=== PATIENT | female | born 1985 | race Caucasian/White ===

== ENCOUNTER 2018-09-24 13:23 | Emergency (ER) | payer OTHER ==
[2018-09-24] MEDS ORDERED: NS 1,000 ML IV ONE (13:51)
[2018-09-24] MEDS ORDERED: LORazepam 2 MG/ML INJ IVP ONE (13:51)
--- NOTE | 2018-09-24 13:57 | EDPHY ---
H & P Stated Complaint: difficulty speaking and vision changes Time Seen by Provider: 09/24/18 13:41 HPI/ROS: CHIEF COMPLAINT: Vision changes, hand and face tingling HISTORY OF PRESENT ILLNESS: Patient is a 33-year-old female who has reported history of migraines as well as anxiety attacks. She reports that about 2 hr ago she was at a meeting at work where they are having a lot of stress and she suddenly developed some colitis scope vision in both eyes. No headache. No trauma. No recent fevers or infections. She then felt flustered and he felt like she could not get her words out. She was eventually able to tell her coworkers that she "needed a moment". She did not have slurred speech at the time. She then noticed some tingling in her right lips and right hand. She went and was able to text her . She had normal dexterity. Her texts made since. She was then able to speak with her on the phone. Over the next half an hour symptoms gradually resolved. She did not have any head pain. No focal weakness. She Googled the symptoms and was worried that maybe she had a stroke. Her migraines in the past have not manifest in this way enough been more classic for in the lateral pain. Severity: Moderate Modifying factors: Now resolved REVIEW OF SYSTEMS: Constitutional: denies: chills, fever, recent illness, recent injury EENTM: denies: See HPI, blurred vision, double vision, nose congestion Respiratory: denies: cough, shortness of breath Cardiac: denies: chest pain, irregular heart rate, lightheadedness, palpitations Gastrointestinal/Abdominal: denies: abdominal pain, diarrhea, nausea, vomiting, blood streaked stools Genitourinary: denies: dysuria, frequency, hematuria, pain Musculoskeletal: denies: joint pain, muscle pain Skin: denies: lesions, rash, jaundice, bruising Neurological: See HPI denies: headache, numbness, dizziness, weakness Hematologic/Lymphatic: denies: blood clots, easy bleeding, easy bruising Immunologic/allergic: denies: HIV/AIDS, transplant 10 systems reviewed and negative except as noted EXAM: GENERAL: Well-appearing, well-nourished and in no acute distress. HEAD: Atraumatic, normocephalic. EYES: Pupils equal round and reactive to light, extraocular movements intact, sclera anicteric, conjunctiva are normal. Normal retinal exam ENT: TMs normal, nares patent, oropharynx clear without exudates. Moist mucous membranes. NECK: Normal range of motion, supple without lymphadenopathy or JVD. LUNGS: Breath sounds clear to auscultation bilaterally and equal. No wheezes rales or rhonchi. HEART: Regular rate and rhythm without murmurs, rubs or gallops. ABDOMEN: Soft, nontender, normoactive bowel sounds. No guarding, no rebound. No masses appreciated. BACK: No CVA tenderness, no spinal tenderness, step-offs or deformities EXTREMITIES: Normal range of motion, no pitting or edema. No clubbing or cyanosis. NEUROLOGICAL: Cranial nerves II through XII grossly intact. Normal speech, normal gait. 5/5 strength, normal movement in all extremities, normal sensation , normal reflexes PSYCH: Still slightly anxious SKIN: Warm, dry, normal turgor, no visible rashes or lesions. Source: Patient Exam Limitations: No limitations - Personal History Current Tetanus/Diphtheria Vaccine: Yes Current Tetanus Diphtheria and Acellular Pertussis (TDAP): Yes - Medical/Surgical History Hx Asthma: No Hx Chronic Respiratory Disease: No Hx Diabetes: No Hx Cardiac Disease: No Hx Renal Disease: No Hx Cirrhosis: No Hx Alcoholism: No Hx HIV/AIDS: No Hx Splenectomy or Spleen Trauma: No Other PMH: anxiety, - Family History Significant Family History: No pertinent family hx - Social History Smoking Status: Never smoked Alcohol Use: None Constitutional: Initial Vital Signs Temperature (C) 37.1 C 09/24/18 13:28 Heart Rate 152 H 09/24/18 13:28 Respiratory Rate 20 09/24/18 13:28 Blood Pressure 160/99 H 09/24/18 13:28 O2 Sat (%) 96 09/24/18 13:28 O2 Delivery Mode Room Air Allergies/Adverse Reactions: No Known Allergies Allergy (Unverified 09/24/18 13:28) Home Medications: Medication Instructions Recorded Bcp 09/24/18 LORazepam [Ativan 1 mg (RX)] 1 mg PO Q6-8PRN PRN #10 tab 09/24/18 Medical Decision Making - Diagnostics EKG Interpretation: An EKG obtained and was read and documented in trace view. Please see trace view for full reading and report. Sinus tachycardia, no acute ischemic changes , PAC Imaging Results: Imaging Impressions Brain MRI 09/24/18 13:51 Impression: Normal MRI of the brain without contrast. Findings discussed with DIANA CANO 09/24/2018 at 14:41. Imaging: Discussed imaging studies w/ yard caller Radiologist ED Course/Re-evaluation: 2:55 p.m. the patient is feeling much better. Her heart rate is down to about 105. She is receiving fluids. We are awaiting electrolytes. EKG and MRI have been reassuring. 3:30 p.m. patient is feeling much better. Her heart rate is down to 95. Electrolytes unremarkable. She feels eager to go home and is asking for a p.r.n. Prescription of Ativan. She will follow up with her primary doctor and has been referred to Psychiatry. Will also refer to Neurology. The visual symptoms today are concerning for an atypical migraine. Differential Diagnosis: Partial list of the Differential diagnosis considered include but were not limited to; anxiety, atypical migraine and although unlikely based on the history and physical exam, I also considered CVA, MS, infection. I discussed these differential diagnoses and the plan with the patient as well as the usual and expected course. The patient understands that the diagnosis is provisional and that in medicine we are not always correct and that further workup is often warranted. Usual and customary warnings were given. All of the patient's questions were answered. The patient was instructed to return to the emergency department should the symptoms at all worsen or return, otherwise to followup with the physician as we discussed. - Data Points Laboratory Results: Laboratory Results 09/24/18 14:05 09/24/18 14:05 09/24/18 09/24/18 09/24/18 14:05 14:05 14:05 WBC 9.19 10^3/uL 10^3/uL (3.80-9.50) RBC 4.72 10^6/uL 10^6/uL (4.18-5.33) Hgb 14.2 g/dL g/dL (12.6-16.3) Hct 43.4 % % (38.0-47.0) MCV 91.9 fL fL (81.5-99.8) MCH 30.1 pg pg (27.9-34.1) MCHC 32.7 g/dL g/dL (32.4-36.7) RDW 12.0 % % (11.5-15.2) Plt Count 302 10^3/uL 10^3/uL (150-400) MPV 9.5 fL fL (8.7-11.7) Neut % (Auto) 81.7 % H % (39.3-74.2) Lymph % (Auto) 13.2 % L % (15.0-45.0) Harding % (Auto) 4.4 % L % (4.5-13.0) Eos % (Auto) 0.1 % L % (0.6-7.6) Baso % (Auto) 0.4 % % (0.3-1.7) Nucleat RBC Rel Count 0.0 % % (0.0-0.2) Absolute Neuts (auto) 7.51 10^3/uL H 10^3/uL (1.70-6.50) Absolute Lymphs (auto) 1.21 10^3/uL 10^3/uL (1.00-3.00) Absolute Monos (auto) 0.40 10^3/uL 10^3/uL (0.30-0.80) Absolute Eos (auto) 0.01 10^3/uL L 10^3/uL (0.03-0.40) Absolute Basos (auto) 0.04 10^3/uL 10^3/uL (0.02-0.10) Absolute Nucleated RBC 0.00 10^3/uL 10^3/uL (0-0.01) Immature Gran % 0.2 % % (0.0-1.1) Immature Gran # 0.02 10^3/uL 10^3/uL (0.00-0.10) Sodium 139 mEq/L mEq/L (135-145) Potassium 3.8 mEq/L mEq/L (3.5-5.2) Chloride 106 mEq/L mEq/L (97-110) Carbon Dioxide 24 mEq/l mEq/l (22-31) Anion Gap 9 mEq/L mEq/L (6-14) BUN 14 mg/dL mg/dL (7-23) Creatinine 0.7 mg/dL mg/dL (0.6-1.0) Estimated GFR > 60 Glucose 113 mg/dL H mg/dL (70-100) Calcium 9.6 mg/dL mg/dL (8.5-10.4) Beta HCG, Qual NEGATIVE Medications Given: Discontinued Medications Sodium Chloride (Ns) 1,000 mls @ 0 mls/hr IV ONCE ONE; Wide Open PRN Reason: Protocol Stop: 09/24/18 13:52 Last Admin: 09/24/18 14:04 Dose: 1,000 mls Lorazepam (Ativan Injection) 1 mg IVP EDNOW ONE Stop: 09/24/18 13:52 Last Admin: 09/24/18 14:04 Dose: 1 mg Departure - Departure Disposition: Home, Routine, Self-Care Clinical Impression: Panic attack, Migraine aura without headache Condition: Good Instructions: Migraine Headache (ED), Panic Attack (ED) Referrals: NIRU ALBERTO [Primary Care Provider] - As per Instructions Desmond Reardon DO [Medical Doctor] - As per Instructions Prescriptions: LORazepam [Ativan 1 mg (RX)] 1 mg PO Q6-8PRN PRN #10 tab PRN Reason: *Anxiety/Agitation/Insomnia
--- NOTE | 2018-09-24 14:11 | CPEKG ---
Test Reason : OPEN Blood Pressure : / mmHG Vent. Rate : 123 BPM Atrial Rate : 123 BPM P-R Int : 149 ms QRS Dur : 098 ms QT Int : 315 ms P-R-T Axes : 045 -26 027 degrees QTc Int : 451 ms Sinus tachycardia Confirmed by Diana Cano ([id number]) on 09/24/2018 2:10:41 PM Referred By: DIANA CANO Confirmed By:Diana Cano
[2018-09-24 14:36] LABS: PLATELET COUNT 302 10^3/uL (150-400)
[2018-09-24 15:52] VITALS: BP 115/81
== END 2018-09-24 15:57 | disposition home or self-care (01) ==
DX: F41.0 Panic disorder [episodic paroxysmal anxiety] (principal); G43.109 Migraine with aura, not intractable, without status migrainosus; E86.9 Volume depletion, unspecified
CPT/HCPCS: 70551-PN; 96374; J2060